=== PATIENT | male | born 1960 | race Caucasian/White ===

== ENCOUNTER 2021-07-31 05:26 | Emergency (ER) | payer SELFPAY | END 2021-07-31 06:12 | LOC: ERS 05:26 | DX: S50.01XA Contusion of right elbow, initial encounter (principal); Y04.0XXA Assault by unarmed brawl or fight, initial encounter ==

== ENCOUNTER 2021-10-05 18:03 | Emergency (ER) | payer SELFPAY ==
[2021-10-05] MEDS ORDERED: Lidocaine 1% PF 5 ML VIAL ONE (18:41)
[2021-10-05] MEDS ORDERED: Acetaminophen 500 MG TAB ONE (20:16)
== END 2021-10-05 20:46 | disposition home or self-care (01) ==
LOC: ERS 18:03
DX: S06.0X0A Concussion without loss of consciousness, initial encounter (principal); S01.01XA Laceration without foreign body of scalp, initial encounter; S01.81XA Laceration without foreign body of other part of head, initial encounter; M25.511 Pain in right shoulder; M25.521 Pain in right elbow; F17.220 Nicotine dependence, chewing tobacco, uncomplicated; X58.XXXA Exposure to other specified factors, initial encounter
CPT/HCPCS: 12013; 70450